=== PATIENT | female | born 1980 | race Caucasian/White ===

== ENCOUNTER → 2018-09-14 | Outpatient (CLI) | payer OTHER ==
[2018-09-14 11:11] LABS: ALBUMIN 3.8 g/dL (3.4-5.0); CALCIUM 9.3 mg/dL (8.5-10.1); CREATININE 0.9 mg/dL (0.6-1.3); PHOSPHORUS* 3.8 mg/dL (2.5-4.9); POTASSIUM 4.4 mmol/L (3.5-5.1)
== END ==
LOC: M.LAB 09:56
PROVIDERS: Psychiatry & Neurology Neuromuscular Medicine
DX: R93.89 Abnormal findings on diagnostic imaging of other specified body structures (principal); R20.2 Paresthesia of skin

== ENCOUNTER → 2018-09-18 | Outpatient (CLI) | payer OTHER | LOC: M.MRI 09-11 14:42 → M.LAB 09-17 15:45 → M.MRI 09-17 16:30 | DX: M50.223 Other cervical disc displacement at C6-C7 level (principal); M48.02 Spinal stenosis, cervical region; Z88.8 Allergy status to other drugs, medicaments and biological substances ==